=== PATIENT | male | born 1975 | race Caucasian/White ===

== ENCOUNTER 2020-10-06 11:40 | Emergency (ER) | payer OTHER ==
[~2020-10-06] VITALS: Ht 172.7 cm; Wt 98.9 kg
[~2020-10-06 11:40] MED LIST: AZITHROMYCIN PO; CLARITIN-D 121 EACH PO; CYMBALTA60 MG PO; NORVASC 5 MG TAB5 MG PO
[2020-10-06] MEDS ORDERED: ZANAFLEX4 MG PO (12:24)
[2020-10-06] MEDS ORDERED: ULTRAM 50MG TAB50 MG PO (12:24)
[2020-10-06] MEDS ORDERED: MEDROLDOSEPACK PO (12:24)
[2020-10-06 13:31] VITALS: BP 187/104
== END 2020-10-06 13:20 | disposition home or self-care (01) ==
LOC: ER 11:40
DX: M54.42 Lumbago with sciatica, left side (principal); I10 Essential (primary) hypertension; Z98.890 Other specified postprocedural states; Z79.2 Long term (current) use of antibiotics; Z79.899 Other long term (current) drug therapy; Z88.0 Allergy status to penicillin; Z88.2 Allergy status to sulfonamides